=== PATIENT | female | born 1965 | race Caucasian/White ===

== ENCOUNTER 2018-05-08 15:52 | Emergency (ER) | payer OTHER ==
[~2018-05-08] VITALS: Ht 162.6 cm; Wt 127.3 kg
[2018-05-08 15:55] VITALS: BP 124/73; TEMP 98.6
[2018-05-08] MEDS ORDERED: CANA300T PO (16:06)
[2018-05-08] MEDS ORDERED: ACTOPLUS MET 501 TAB PO (16:07)
[2018-05-08] MEDS ORDERED: DYAZIDE 25 MG-31 CAP PO (16:07)
[2018-05-08] MEDS ORDERED: ACCUPRIL10 M1 PO (16:07)
[2018-05-08] MEDS ORDERED: WELLBUTRIN XL150 MG PO (16:08)
[2018-05-08] MEDS ORDERED: AMBIEN CR 12.12.5 MG PO (16:08)
[2018-05-08] MEDS ORDERED: LIPITOR 10MG10 MG PO (16:08)
[2018-05-08 17:25] VITALS: PULSE 76
== END 2018-05-08 17:26 | disposition home or self-care (01) ==
LOC: COL.ER 15:52
DX: S81.812A Laceration without foreign body, left lower leg, initial encounter (principal); E11.9 Type 2 diabetes mellitus without complications; Z98.51 Tubal ligation status; Z98.890 Other specified postprocedural states; Z23 Encounter for immunization; Z79.84 Long term (current) use of oral hypoglycemic drugs; W26.8XXA Contact with other sharp object(s), not elsewhere classified, initial encounter